=== PATIENT | female | born 1975 | race Caucasian/White ===

== ENCOUNTER → 2025-01-29 | Emergency (ER) | payer OTHER ==
[~2025-01-29] VITALS: Ht 154.9 cm; Wt 74.1 kg
[2025-01-29 18:24] VITALS: BP 174/111; PULSE 93; RESP 22; TEMP 98.9; O2SAT 98
== END | disposition left against medical advice (07) ==
LOC: ER 18:18
DX: R20.0 Anesthesia of skin (principal); R20.2 Paresthesia of skin; Z53.21 Procedure and treatment not carried out due to patient leaving prior to being seen by health care provider